=== PATIENT | male | born 1965 | race Caucasian/White ===

== ENCOUNTER 2020-03-12 05:08 | Emergency (ER) | payer MEDICAID, OTHER ==
[2020-03-12] MEDS ORDERED: Ketorolac 30 MG/ML SDV IVPUSH ONE (05:19)
[2020-03-12] MEDS ORDERED: Sodium Chloride 0.9% 10 ML Syringe FLUSH PRN (05:19)
[2020-03-12] MEDS ORDERED: Sodium Chloride 0.9% 1,000 ML IV STA (05:19)
[2020-03-12] MEDS ORDERED: Ondansetron 4 MG/2 ML SDV IVPUSH ONE (05:20)
--- NOTE | 2020-03-12 05:23 | EDM.PDOC ---
ED HPI GENERAL MEDICAL PROBLEM - General Chief Complaint: Abdominal Pain Stated Complaint: ABD PAIN Time Seen by Provider: 03/12/20 05:16 Source of Information: Reports: Patient, RN Notes Reviewed History Limitations: Reports: No Limitations - History of Present Illness INITIAL COMMENTS - FREE TEXT/NARRATIVE: 54-year-old gentleman presents emergency department a complaint of right flank pain, pain came on suddenly early this morning started the flank is migrated down into the groin. He describes the pain is constant does have some nausea no vomiting no shortness of breath or chest pain Right Lower Abdomen Pain Score (Numeric/FACES): 2 - Related Data Allergies Allergy/AdvReac Type Severity Reaction Status Date / Time No Known Allergies Allergy Verified 03/12/20 05:12 Home Meds: Home Meds Hydrocodone/Acetaminophen [Hydrocodon-Acetaminophen 5-325] 1 each PO TID PRN #20 tablet 03/12/20 [Rx] Past Medical History - Past Health History Medical/Surgical History: Denies Medical/Surgical History Social & Family History - Tobacco Use Smoking Status *Q: Current Every Day Smoker ED ROS GENERAL - Review of Systems Review Of Systems: See Below Constitutional: Reports: No Symptoms HEENT: Reports: No Symptoms Respiratory: Reports: No Symptoms Cardiovascular: Reports: No Symptoms GI/Abdominal: Reports: Abdominal Pain, Nausea. Denies: Vomiting : Reports: Flank Pain ED EXAM, GI/ABD - Physical Exam Exam: See Below Exam Limited By: No Limitations General Appearance: Alert, Moderate Distress Respiratory/Chest: No Respiratory Distress, Lungs Clear, Normal Breath Sounds, No Accessory Muscle Use, Chest Non-Tender Cardiovascular: Regular Rate, Rhythm, No Murmur GI/Abdominal Exam: Soft, Tender Course - Vital Signs Last Recorded V/S: Last Vital Signs Temp 96 F L 03/12/20 06:19 Pulse 84 03/12/20 06:19 Resp 16 03/12/20 06:19 BP 131/89 03/12/20 06:19 Pulse Ox 94 L 03/12/20 06:19 - Orders/Labs/Meds Orders: Active Orders 24 hr Category Date Time Status Peripheral IV Care [RC] . DIRECTED Care 03/12/20 05:20 Active UA W/MICROSCOPIC [URIN] Urgent Lab 03/12/20 05:19 Ordered Sodium Chloride 0.9% [Normal Saline] 1,000 ml Med 03/12/20 05:19 Active IV .BOLUS Sodium Chloride 0.9% [Saline Flush] Med 03/12/20 05:19 Active 10 ml FLUSH ASDIRECTED PRN Peripheral IV Insertion Adult [OM.PC] Urgent Oth 03/12/20 05:19 Ordered Medication Orders Sodium Chloride (Normal Saline) 1,000 mls @ 500 mls/hr IV .BOLUS STA Stop: 03/12/20 07:18 Last Admin: 03/12/20 05:28 Dose: 500 mls/hr Documented by: KAYCE Sodium Chloride (Saline Flush) 10 ml FLUSH ASDIRECTED PRN PRN Reason: Keep Vein Open Last Admin: 03/12/20 05:48 Dose: 10 ml Documented by: SOPHIA Labs: Laboratory Tests 03/12/20 03/12/20 03/12/20 Range/Units 05:19 05:19 05:19 WBC 10.8 (4.5-11.0) K/uL RBC 4.58 (4.30-5.90) M/uL Hgb 13.5 (12.0-15.0) g/dL Hct 42.0 (40.0-54.0) % MCV 92 (80-98) fL MCH 30 (27-31) pg MCHC 32 (32-36) % Plt Count 328 (150-400) K/uL Neut % (Auto) 67 H (36-66) % Lymph % (Auto) 21 L (24-44) % [place] % (Auto) 10 H (2-6) % Eos % (Auto) 2 (2-4) % Baso % (Auto) 1 (0-1) % Sodium 137 L (140-148) mmol/L Potassium 3.4 L (3.6-5.2) mmol/L Chloride 99 L (100-108) mmol/L Carbon Dioxide 26 (21-32) mmol/L Anion Gap 15.4 H (5.0-14.0) mmol/L BUN 15 (7-18) mg/dL Creatinine 1.2 (0.8-1.3) mg/dL Est Cr Clr Drug Dosing 78.14 mL/min Estimated GFR (MDRD) > 60 (>60) Glucose 161 H (74-106) mg/dL Lactic Acid 1.5 (0.4-2.0) mmol/L Calcium 9.0 (8.5-10.1) mg/dL Total Bilirubin 0.4 (0.2-1.0) mg/dL AST 30 (15-37) U/L ALT 73 (12-78) U/L Alkaline Phosphatase 70 (46-116) U/L Troponin I < 0.017 (0.000-0.056) ng/mL Total Protein 7.8 (6.4-8.2) g/dL Albumin 3.9 (3.4-5.0) g/dL Globulin 3.9 H (2.3-3.5) g/dL Albumin/Globulin Ratio 1.0 L (1.2-2.2) Lipase 119 (73-393) U/L Meds: Medications Generic Name Dose Route Start Last Admin Trade Name Freq PRN Reason Stop Dose Admin Sodium Chloride 1,000 mls @ 500 mls/hr 03/12/20 05:19 03/12/20 05:28 Normal Saline IV 03/12/20 07:18 500 mls/hr .BOLUS STA Administration Sodium Chloride 10 ml 03/12/20 05:19 03/12/20 05:48 Saline Flush FLUSH 10 ml ASDIRECTED PRN Administration Keep Vein Open Discontinued Medications Generic Name Dose Route Start Last Admin Trade Name Freq PRN Reason Stop Dose Admin Hydromorphone HCl 1 mg 03/12/20 05:49 03/12/20 05:54 Dilaudid IVPUSH 03/12/20 05:50 1 mg ONETIME ONE Administration Ketorolac Tromethamine 30 mg 03/12/20 05:19 03/12/20 05:26 Toradol IVPUSH 03/12/20 05:20 30 mg ONETIME ONE Administration Ondansetron HCl 4 mg 03/12/20 05:20 03/12/20 05:27 Zofran IVPUSH 03/12/20 05:21 4 mg ONETIME ONE Administration Departure - Departure Time of Disposition: 06:52 Disposition: Home, Self-Care 01 Condition: Fair Clinical Impression: Nephrolithiasis - Discharge Information Instructions: Kidney Stones, [id number] Referrals: PCP,None [Primary Care Provider] - Forms: ED Department Discharge Additional Instructions: Use ibuprofen for baseline pain control use hydrocodone for breakthrough pain, please followup with your primary care provider in 5-7 days if not better, please call return to the emergency department with worsening of symptoms. Sepsis Event Note (ED) - Focused Exam Vital Signs: Vital Signs Temp Pulse Resp BP Pulse Ox 03/12/20 06:19 96 F L 84 16 131/89 94 L 03/12/20 05:32 96 F L 85 16 147/93 H 96 - My Orders Last 24 Hours: My Active Orders 03/12/20 05:19 UA W/MICROSCOPIC [URIN] Urgent Sodium Chloride 0.9% [Normal Saline] 1,000 ml IV .BOLUS Sodium Chloride 0.9% [Saline Flush] 10 ml FLUSH ASDIRECTED PRN Peripheral IV Insertion Adult [OM.PC] Urgent 03/12/20 05:20 Peripheral IV Care [RC] . DIRECTED - Assessment/Plan Last 24 Hours: My Active Orders 03/12/20 05:19 UA W/MICROSCOPIC [URIN] Urgent Sodium Chloride 0.9% [Normal Saline] 1,000 ml IV .BOLUS Sodium Chloride 0.9% [Saline Flush] 10 ml FLUSH ASDIRECTED PRN Peripheral IV Insertion Adult [OM.PC] Urgent 03/12/20 05:20 Peripheral IV Care [RC] . DIRECTED Plan: Assessment Acuity = acute Site and laterality = right 2 mm nephrolithiasis UVJ Etiology = unknown Manifestations = abdominal pain Location of injury = Home Lab values = CBC unremarkable potassium low at 3.4 consistent hypokalemia, troponin was negative Plan Good relief combination Toradol and Dilaudid prescription written for hydrocodone 5/325 1 tab p.o. 3 times daily as needed total #20 have him follow- up with his primary care in the next 3 to 5 days if no improvement This note was dictated using [employer] voice recognition software please call with any questions on syntax or grammar.
[2020-03-12] MEDS ORDERED: HYDROmorphone 1 MG/ML Syringe IVPUSH ONE ×2 (05:49→06:55)
--- NOTE | 2020-03-12 06:12 | CRLCT ---
INDICATION: Right flank pain. Technique : Noncontrast CT scan of the abdomen and pelvis. FINDINGS: The lung bases are unremarkable. Diffuse fatty infiltration of the liver. No focal abnormalities identified in the visualized portions of the liver, spleen, pancreas, and adrenal glands. 1-2 mm stone in the right UVJ which causes mild right-sided hydronephrosis. 2 mm nonobstructing nephrolith in the superior pole of the right kidney. The kidneys are otherwise unremarkable. No left-sided hydronephrosis. The GI tract is incompletely distended but shows no gross abnormalities. The stomach and GE junction are not well assessed. Normal appendix. Gallstones in an otherwise normal-appearing gallbladder. No retroperitoneal, pelvic sidewall, or mesenteric adenopathy. Degenerative changes of the spine. IMPRESSION: 1-2 mm stone in the right UVJ which causes mild right-sided hydronephrosis. Dictated by Ambrocio Kennedy MD @ 03/12/2020 6:10:34 AM Dictated by: Ambrocio Kennedy MD @ 03/12/2020 06:10:48 (Electronically Signed)
[2020-03-12 06:20] VITALS: BP 131/89; PULSE 84
== END 2020-03-12 07:08 | disposition home or self-care (01) ==
LOC: JP.ED 05:08
DX: N13.2 Hydronephrosis with renal and ureteral calculous obstruction (principal); F17.200 Nicotine dependence, unspecified, uncomplicated
CPT/HCPCS: 36415; 74176; 80053; 83605; 83690; 84484; 85025; 96361; 96374; 96375; 96376; 99284; J1170; J1885; J2405; J7030

== ENCOUNTER 2020-03-14 06:10 | Emergency (ER) | payer MEDICAID ==
[2020-03-14 06:26] VITALS: BP 178/101; PULSE 76
[2020-03-14] MEDS ORDERED: Tamsulosin 0.4 MG Cap.ER PO ONE (06:47)
--- NOTE | 2020-03-14 07:01 | EDM.PDOC ---
ED HPI GENERAL MEDICAL PROBLEM - General Chief Complaint: Genitourinary Problem Stated Complaint: KIDNEY STONES Time Seen by Provider: 03/14/20 06:35 Source of Information: Reports: Patient History Limitations: Reports: No Limitations - History of Present Illness INITIAL COMMENTS - FREE TEXT/NARRATIVE: 54-year-old male having right lower quadrant pain and bladder discomfort, does not feel like he is emptying his bladder completely after being diagnosed with kidney stone 3 days ago. No fevers or chills, still some pain radiating around to his right back. No nausea or vomiting. Onset: Unknown/Unsure Duration: Day(s): (Symptoms have been waxing and waning for several days) Associated Symptoms: Reports: No Other Symptoms Abdominal Pain Score (Numeric/FACES): 6 - Related Data Allergies Allergy/AdvReac Type Severity Reaction Status Date / Time No Known Allergies Allergy Verified 03/14/20 06:23 Home Meds: Home Meds Hydrocodone/Acetaminophen [Hydrocodon-Acetaminophen 5-325] 1 each PO TID PRN #20 tablet 03/12/20 [Rx] Past Medical History - Past Health History Medical/Surgical History: Denies Medical/Surgical History HEENT History: Reports: Impaired Vision Genitourinary History: Reports: Renal Calculus Musculoskeletal History: Reports: Fracture Endocrine/Metabolic History: Reports: Obesity/BMI 30+ - Infectious Disease History Infectious Disease History: Reports: Chicken Pox - Past Surgical History Musculoskeletal Surgical History: Reports: Other (See Below) Other Musculoskeletal Surgeries/Procedures:: shoulder surgery bone infection r index finger Social & Family History - Caffeine Use Caffeine Use: Reports: Energy Drinks, Soda ED ROS GENERAL - Review of Systems Review Of Systems: See Below Constitutional: Denies: Fever, Chills HEENT: Reports: No Symptoms Respiratory: Denies: Shortness of Breath Cardiovascular: Denies: Chest Pain GI/Abdominal: Reports: Abdominal Pain : Reports: Dysuria, Frequency, Urgency ED EXAM, RENAL/ - Physical Exam Exam: See Below Exam Limited By: No Limitations General Appearance: Alert, No Apparent Distress Respiratory/Chest: No Respiratory Distress, Lungs Clear Cardiovascular: Regular Rate, Rhythm GI/Abdominal: Tender (Minimal discomfort when palpating across the lower abdomen, no guarding or rebound) Neurological: Alert, Oriented Course - Vital Signs Last Recorded V/S: Last Vital Signs Temp 97.8 F 03/14/20 06:26 Pulse 76 10/01/20 06:26 Resp 18 03/14/20 06:26 BP 178/101 H 03/14/20 06:26 Pulse Ox 97 03/14/20 06:26 - Orders/Labs/Meds Meds: Medications Discontinued Medications Generic Name Dose Route Start Last Admin Trade Name Bia PRN Reason Stop Dose Admin Tamsulosin HCl 0.4 mg 03/14/20 06:47 03/14/20 06:51 Flomax PO 03/14/20 06:48 0.4 mg ONETIME ONE Administration - Re-Assessments/Exams Free Text/Narrative Re-Assessment/Exam: 03/14/20 06:59 Bladder scan was done in the bladder is empty. This patient is likely still having some ureteral colic on the right side, possibly some urethritis. He was given 1 dose of oral Flomax, will placed on Bactrim DS twice daily for the next 5 days, and will recheck in 48 hours if no improvement. He can return anytime sooner if worsening such as increased pain or vomiting, fever, or respiratory issues. Departure - Departure Time of Disposition: 07:07 Disposition: Home, Self-Care 01 Clinical Impression: Renal colic on right side - Discharge Information Instructions: Kidney Stones, [id number], Dietary Guidelines to Help Prevent Kidney Stones Referrals: PCP,None [Primary Care Provider] - Forms: ED Department Discharge Care Plan Goals: Take antibiotic twice daily for the next 5 days, continue drinking plenty of water and return in 48 hours if not improving satisfactorily. You may return sooner if worsening or concerns such as fever, increased pain or vomiting the medication. Sepsis Event Note (ED) - Evaluation Sepsis Screening Result: No Definite Risk - Focused Exam Vital Signs: Vital Signs Temp Pulse Resp BP Pulse Ox 03/14/20 06:26 97.8 F 76 18 178/101 H 97 03/14/20 06:25 97.8 F 76 18 178/101 H 97
== END 2020-03-14 07:08 | disposition home or self-care (01) ==
LOC: JP.ED 06:10
DX: N23 Unspecified renal colic (principal); E66.9 Obesity, unspecified; Z68.41 Body mass index [BMI] 40.0-44.9, adult
CPT/HCPCS: 99284; A9270; 99283

== ENCOUNTER 2020-05-30 14:59 | Emergency (ER) | payer MEDICAID ==
[2020-05-30 15:11] VITALS: PULSE 97
[2020-05-30 15:18] VITALS: BP 115/96
[2020-05-30] MEDS ORDERED: Albuterol/Ipratropium 3.0-0.5 MG/3 ML Neb Soln NEB ONE (15:27)
[2020-05-30] MEDS ORDERED: methylPREDNISolone Sodium Succinate 125 MG/2 ML SDV IVPUSH ONE (15:54)
[2020-05-30] MEDS ORDERED: Azithromycin 250 MG Tab PO ONE (15:54)
[2020-05-30] MEDS ORDERED: Doxycycline 100 MG Cap PO ONE (15:55)
--- NOTE | 2020-05-30 16:05 | EDM.PDOC ---
ED HPI GENERAL MEDICAL PROBLEM - General Chief Complaint: Respiratory Problem Stated Complaint: BREATHING ISSUES Time Seen by Provider: 05/30/20 15:15 Source of Information: Reports: Patient, Family History Limitations: Reports: No Limitations - History of Present Illness INITIAL COMMENTS - FREE TEXT/NARRATIVE: 54-year-old male with a chronic history of recurring reactive airways and bronchitis, non-smoker but he does chew tobacco. Several weeks ago while he was hunting he was active in the [employer] and started wheezing, and he has been having trouble ever since. No fevers or chills, he has a persistent cough but nonproductive. Has been using his inhaler and nebulizer with little benefit. He was talking to his daughter on the phone today and she could hear how much she was struggling so drove to [place] and brought him in to be seen. On arrival he looked somewhat pale and in mild respiratory distress but his O2 sats were 95%. Denied any pain. He was tested for Covid at the clinic a few days ago and was negative. Onset: Gradual Duration: Week(s): (Weeks) - Related Data Allergies Allergy/AdvReac Type Severity Reaction Status Date / Time No Known Allergies Allergy Verified 05/30/20 15:11 Home Meds: Home Meds Albuterol Sulfate 0.63 mg IH ASDIRECTED 05/30/20 [History] Past Medical History - Past Health History Medical/Surgical History: Denies Medical/Surgical History HEENT History: Reports: Impaired Vision Respiratory History: Reports: Bronchitis, Recurrent Genitourinary History: Reports: Renal Calculus Musculoskeletal History: Reports: Fracture Endocrine/Metabolic History: Reports: Obesity/BMI 30+ - Infectious Disease History Infectious Disease History: Reports: Chicken Pox - Past Surgical History Head Surgeries/Procedures: Reports: None HEENT Surgical History: Reports: None Respiratory Surgical History: Reports: None Endocrine Surgical History: Reports: None Musculoskeletal Surgical History: Reports: Other (See Below) Other Musculoskeletal Surgeries/Procedures:: shoulder surgery bone infection r index finger Dermatological Surgical History: Reports: None Social & Family History - Tobacco Use Years of Tobacco use: 40 Used Tobacco, but Quit: No Second Hand Smoke Exposure: No - Caffeine Use Caffeine Use: Reports: Soda - Recreational Drug Use Recreational Drug Use: No ED ROS GENERAL - Review of Systems Review Of Systems: See Below Constitutional: Reports: Malaise. Denies: Fever, Chills HEENT: Denies: Throat Pain Respiratory: Reports: Shortness of Breath, Wheezing, Cough. Denies: Sputum Cardiovascular: Denies: Chest Pain GI/Abdominal: Denies: Nausea, Vomiting Musculoskeletal: Reports: No Symptoms Skin: Reports: No Symptoms Neurological: Reports: No Symptoms Psychiatric: Reports: No Symptoms ED EXAM, GENERAL - Physical Exam Exam: See Below Exam Limited By: No Limitations General Appearance: Alert, Mild Distress (Patient had mild increased respiratory effort and of isthmic, however his O2 sats were 96% on room air. Respiratory rate was 26 and he had audible wheezing from across the room.) Head: Atraumatic Respiratory/Chest: Rhonchi, Wheezing (Diffuse rhonchi and wheezing inspiratory and expiratory bilaterally) Cardiovascular: Regular Rate, Rhythm. No: Tachycardia GI/Abdominal: Non-Tender Extremities: No: Pedal Edema Neurological: Alert, Oriented Psychiatric: Normal Affect, Normal Mood Skin Exam: Warm, Dry Course - Vital Signs Last Recorded V/S: Last Vital Signs Temp 98.0 F 05/30/20 15:15 Pulse 97 05/30/20 15:15 Resp 26 H 05/30/20 15:15 BP 115/96 H 05/30/20 15:17 Pulse Ox 96 05/30/20 15:15 - Orders/Labs/Meds Meds: Medications Discontinued Medications Generic Name Dose Route Start Last Admin Trade Name Gaboq PRN Reason Stop Dose Admin Albuterol/Ipratropium 3 ml 05/30/20 15:27 05/30/20 15:33 Duoneb 3.0-0.5 Mg/3 Ml NEB 05/30/20 15:28 3 ml ONETIME ONE Administration Doxycycline Hyclate 200 mg 05/30/20 15:55 05/30/20 16:05 Vibramycin PO 05/30/20 15:56 200 mg ONETIME ONE Administration Methylprednisolone Sodium Succinate 125 mg 05/30/20 15:54 05/30/20 15:59 Solu-Medrol IVPUSH 05/30/20 15:55 125 mg ONETIME ONE Administration - Re-Assessments/Exams Free Text/Narrative Re-Assessment/Exam: 05/31/20 07:21 Patient was given a DuoNeb, then sent back for a 2 view chest x-ray. This looked normal and he felt fairly suddenly better subjectively and objectively is respiratory rate decreased to normal. He still had significant wheezing present. An IV was started and the patient was given 125 mg of IV Solu-Medrol and 1000 mg of p.o. Zithromax. He will be continued on steroids with 60 mg daily for 5 days, 40 for an additional 3 and then 20 for 4 more. He can return anytime if worsening despite treatment. He refused to consider hospitalization at this time. I also gave him a prescription for DuoNeb ampules to use in his nebulizer twice daily along with as needed albuterol. Departure - Departure Time of Disposition: 16:22 Disposition: Home, Self-Care 01 Clinical Impression: Bronchitis Reactive airway disease Qualifiers: Asthma severity: severe Asthma persistence: persistent Asthma complication type: uncomplicated Qualified Code(s): J45.50 - Severe persistent asthma, uncomplicated - Discharge Information Instructions: Shortness of Breath, Adult, [id number] Referrals: PCP,None [Primary Care Provider] - Forms: ED Department Discharge Care Plan Goals: Take 60 mg of prednisone daily for 5 days, 40 mg for 3 more days, and 20 mg for 3 additional days. Take a full course of doxycycline as directed. Use your nebulizer with DuoNeb ampules twice daily, and albuterol up to every 2-3 hours if needed. Recheck in 2 to 3 days if not improving satisfactorily, or return anytime if worsening despite treatment. Sepsis Event Note (ED) - Evaluation Sepsis Screening Result: Possible Sepsis Risk
--- NOTE | 2020-05-30 16:07 | CR ---
CHEST: 2 view CLINICAL HISTORY:Dyspnea COMPARISON:2014 FINDINGS: The heart size, pulmonary vascularity and hilar structures are normal. No infiltrate effusion or pneumothorax is seen. IMPRESSION: No acute cardiopulmonary process.
== END 2020-05-30 16:22 | disposition home or self-care (01) ==
LOC: JP.ED 14:59
DX: J45.50 Severe persistent asthma, uncomplicated (principal); E66.9 Obesity, unspecified; F17.220 Nicotine dependence, chewing tobacco, uncomplicated; Z68.41 Body mass index [BMI] 40.0-44.9, adult
CPT/HCPCS: 71046; 71046-26; 94640; 96374; 99284; 99285-25; A9270-GY; J2930; J7620-GY

== ENCOUNTER 2020-08-16 08:28 | Emergency (ER) | payer MEDICAID ==
[2020-08-16 08:46] VITALS: BP 148/97; PULSE 58
[2020-08-16] MEDS ORDERED: Albuterol/Ipratropium 3.0-0.5 MG/3 ML Neb Soln NEB ONE (09:07)
[2020-08-16] MEDS ORDERED: Triamcinolone Acetonide 40 MG/ML 1 ML SDV IM PRN (09:08)
--- NOTE | 2020-08-16 09:08 | EDM.PDOC ---
ED HPI GENERAL MEDICAL PROBLEM - General Chief Complaint: Respiratory Problem Stated Complaint: BRONCHITIS Time Seen by Provider: 08/16/20 09:07 Source of Information: Reports: Patient History Limitations: Reports: No Limitations - History of Present Illness INITIAL COMMENTS - FREE TEXT/NARRATIVE: pt had a history of bronchitis in May. He is now feeling tight and more sob. Onset: Gradual Duration: Day(s): Location: Reports: Chest, Other (pt is feeling quite wheezy. ) Associated Symptoms: Reports: Cough, Shortness of Breath - Related Data Allergies Allergy/AdvReac Type Severity Reaction Status Date / Time No Known Allergies Allergy Verified 08/16/20 08:43 Home Meds: Home Meds Albuterol Sulfate 0.63 mg IH ASDIRECTED 05/30/20 [History] Past Medical History - Past Health History Medical/Surgical History: Denies Medical/Surgical History HEENT History: Reports: Impaired Vision Respiratory History: Reports: Bronchitis, Recurrent Genitourinary History: Reports: Renal Calculus Musculoskeletal History: Reports: Fracture Endocrine/Metabolic History: Reports: Obesity/BMI 30+ - Infectious Disease History Infectious Disease History: Reports: Chicken Pox - Past Surgical History Head Surgeries/Procedures: Reports: None HEENT Surgical History: Reports: None Respiratory Surgical History: Reports: None Endocrine Surgical History: Reports: None Musculoskeletal Surgical History: Reports: Other (See Below) Other Musculoskeletal Surgeries/Procedures:: shoulder surgery bone infection r index finger Dermatological Surgical History: Reports: None Social & Family History - Tobacco Use Tobacco Use Status *Q: Current Every Day Tobacco User Years of Tobacco use: 40 Packs/Tins Daily: 0.5 Used Tobacco, but Quit: No Second Hand Smoke Exposure: No - Caffeine Use Caffeine Use: Reports: Soda - Recreational Drug Use Recreational Drug Use: No ED ROS GENERAL - Review of Systems Review Of Systems: See Below Constitutional: Reports: No Symptoms HEENT: Reports: No Symptoms Respiratory: Reports: Shortness of Breath, Wheezing, Cough, Sputum Cardiovascular: Reports: No Symptoms Endocrine: Reports: No Symptoms GI/Abdominal: Reports: No Symptoms : Reports: No Symptoms Musculoskeletal: Reports: No Symptoms Skin: Reports: No Symptoms Neurological: Reports: No Symptoms Psychiatric: Reports: Anxiety ED EXAM, GENERAL - Physical Exam Exam: See Below Free Text/Narrative:: pt has been more sob and wheezy for the past 2 days. He has a history of bronchitis in May. Exam Limited By: No Limitations General Appearance: Alert, Anxious, Moderate Distress Ears: Normal TMs Nose: Normal Inspection Throat/Mouth: Normal Inspection Head: Atraumatic Neck: Normal Inspection Respiratory/Chest: Decreased Breath Sounds, Wheezing Cardiovascular: Regular Rate, Rhythm, Bradycardia GI/Abdominal: Soft, Non-Tender (Male) Exam: Deferred Rectal (Males) Exam: Deferred Back Exam: Normal Inspection Extremities: Normal Inspection Neurological: Alert, Oriented, Normal Cognition Course - Vital Signs Last Recorded V/S: Last Vital Signs Temp 36.6 C 08/16/20 08:47 Pulse 58 L 08/16/20 08:47 Resp 18 08/16/20 08:47 BP 148/97 H 08/16/20 08:47 Pulse Ox 98 08/16/20 08:47 - Orders/Labs/Meds Orders: Active Orders 24 hr Category Date Time Status RT Aerosol Therapy [RC] ASDIRECTED Care 08/16/20 09:08 Active Chest 2V [CR] Stat Exams 08/16/20 09:14 Taken Triamcinolone Acetonide [Kenalog-40] Med 08/16/20 09:08 Active 60 mg IM ASDIRECTED PRN Medication Orders Triamcinolone Acetonide (Kenalog-40) 60 mg IM ASDIRECTED PRN PRN Reason: Congestion Last Admin: 08/16/20 09:25 Dose: 60 mg Documented by: JARRELL Labs: Laboratory Tests 08/16/20 Range/Units 09:04 WBC 8.7 (4.5-11.0) K/uL RBC 4.81 (4.30-5.90) M/uL Hgb 13.9 (12.0-15.0) g/dL Hct 44.6 (40.0-54.0) % MCV 93 (80-98) fL MCH 29 (27-31) pg MCHC 31 L (32-36) % Plt Count 340 (150-400) K/uL Neut % (Auto) 56 (36-66) % Lymph % (Auto) 24 (24-44) % [place] % (Auto) 11 H (2-6) % Eos % (Auto) 8 H (2-4) % Baso % (Auto) 1 (0-1) % Meds: Medications Generic Name Dose Route Start Last Admin Trade Name Freq PRN Reason Stop Dose Admin Triamcinolone Acetonide 60 mg 08/16/20 09:08 08/16/20 09:25 Kenalog-40 IM 60 mg ASDIRECTED PRN Administration Congestion Discontinued Medications Generic Name Dose Route Start Last Admin Trade Name Bia PRN Reason Stop Dose Admin Albuterol/Ipratropium 3 ml 08/16/20 09:07 08/16/20 09:23 Duoneb 3.0-0.5 Mg/3 Ml NEB 08/16/20 09:08 3 ml ONETIME ONE Administration Departure - Departure Time of Disposition: 09:52 Disposition: Home, Self-Care 01 Condition: Fair Clinical Impression: Bronchitis - Discharge Information Referrals: PCP,None [Primary Care Provider] - Forms: ED Department Discharge Care Plan Goals: cool mist humidifier, albuterol inhakler 2 puffs tid, predisone 10 mg daily for 1 week, zpak. rtc if problems. Sepsis Event Note (ED) - Evaluation Sepsis Screening Result: No Definite Risk - Focused Exam Vital Signs: Vital Signs Temp Pulse Resp BP Pulse Ox 08/16/20 08:47 36.6 C 58 L 18 148/97 H 98 08/16/20 08:46 36.6 C 58 L 18 148/97 H 98 - My Orders Last 24 Hours: My Active Orders 08/16/20 09:08 RT Aerosol Therapy [RC] ASDIRECTED Triamcinolone Acetonide [Kenalog-40] 60 mg IM ASDIRECTED PRN 08/16/20 09:14 Chest 2V [CR] Stat - Assessment/Plan Last 24 Hours: My Active Orders 08/16/20 09:08 RT Aerosol Therapy [RC] ASDIRECTED Triamcinolone Acetonide [Kenalog-40] 60 mg IM ASDIRECTED PRN 08/16/20 09:14 Chest 2V [CR] Stat
--- NOTE | 2020-08-16 10:00 | CR ---
CHEST: 2 view CLINICAL HISTORY:SOB COMPARISON:08/16/2020 FINDINGS: Heart is enlarged. Pulmonary vascularity is normal. Heart size and lung markings are exaggerated by poor respiratory level. No infiltrate, effusion or pneumothorax is seen. IMPRESSION: Less than optimal inspiration Mild cardiomegaly No acute cardiopulmonary process
== END 2020-08-16 10:06 | disposition home or self-care (01) ==
LOC: JP.ED 08:28
DX: J40 Bronchitis, not specified as acute or chronic (principal); E66.9 Obesity, unspecified; Z68.41 Body mass index [BMI] 40.0-44.9, adult; Z72.0 Tobacco use
CPT/HCPCS: 36415; 71046; 85025; 94640; 96372; 99285; J3301; J7620-GY

== ENCOUNTER 2021-01-28 08:04 | Emergency (ER) | payer MEDICAID ==
[2021-01-28] MEDS ORDERED: Albuterol/Ipratropium 3.0-0.5 MG/3 ML Neb Soln NEB ONE (08:37)
[2021-01-28] MEDS ORDERED: methylPREDNISolone Sodium Succinate 125 MG/2 ML SDV IVPUSH ONE (08:54)
[2021-01-28 09:05] VITALS: BP 148/82; PULSE 91
--- NOTE | 2021-01-28 09:19 | EDM.PDOC ---
ED HPI GENERAL MEDICAL PROBLEM - General Chief Complaint: Respiratory Problem Stated Complaint: BREATHING ISSUES Time Seen by Provider: 01/28/21 08:40 Source of Information: Reports: Patient, Family History Limitations: Reports: No Limitations - History of Present Illness INITIAL COMMENTS - FREE TEXT/NARRATIVE: 55-year-old male with chronic asthma has had an increase exacerbation over the past 2 weeks and finally got so short of breath that he needed to be checked out. I saw him with a similar set of symptoms a year ago that he responded well to steroids and Zithromax. He does not have an inhaler or any medications at this time. No fevers or chills, cough is nonproductive. Onset: Gradual Duration: Week(s): (3 weeks of symptoms) Associated Symptoms: Reports: Malaise, Shortness of Breath. Denies: Confusion, Chest Pain, Fever/Chills, Headaches - Related Data Allergies Allergy/AdvReac Type Severity Reaction Status Date / Time No Known Allergies Allergy Verified 01/28/21 08:21 Home Meds: Home Meds NK [No Known Home Meds] 01/28/21 [History] Past Medical History - Past Health History Medical/Surgical History: Denies Medical/Surgical History HEENT History: Reports: Impaired Vision Respiratory History: Reports: Bronchitis, Recurrent Genitourinary History: Reports: Renal Calculus Musculoskeletal History: Reports: Fracture Endocrine/Metabolic History: Reports: Obesity/BMI 30+ - Infectious Disease History Infectious Disease History: Reports: Chicken Pox - Past Surgical History Head Surgeries/Procedures: Reports: None HEENT Surgical History: Reports: None Respiratory Surgical History: Reports: None Endocrine Surgical History: Reports: None Musculoskeletal Surgical History: Reports: Other (See Below) Other Musculoskeletal Surgeries/Procedures:: shoulder surgery bone infection r index finger Dermatological Surgical History: Reports: None Social & Family History - Tobacco Use Tobacco Use Status *Q: Current Every Day Tobacco User Years of Tobacco use: 40 Packs/Tins Daily: 0.5 - Caffeine Use Caffeine Use: Reports: Soda - Recreational Drug Use Recreational Drug Use: No ED ROS GENERAL - Review of Systems Review Of Systems: See Below Constitutional: Reports: Malaise. Denies: Fever, Chills HEENT: Denies: Throat Pain Respiratory: Reports: Shortness of Breath, Wheezing, Cough. Denies: Sputum Cardiovascular: Denies: Chest Pain GI/Abdominal: Denies: Nausea, Vomiting Skin: Reports: No Symptoms Neurological: Denies: Dizziness, Headache Psychiatric: Reports: No Symptoms ED EXAM, GENERAL - Physical Exam Exam: See Below Exam Limited By: No Limitations General Appearance: Alert, Anxious, Mild Distress, Other (Mild increased respiratory effort and discomfort) Eye Exam: Bilateral Eye: Normal Inspection Throat/Mouth: Normal Inspection Head: Atraumatic Neck: Supple, Non-Tender Respiratory/Chest: Wheezing (Diffuse inspiratory and expiratory wheezing is heard) Cardiovascular: Regular Rate, Rhythm. No: Tachycardia GI/Abdominal: Non-Tender Extremities: Normal Inspection Neurological: Alert, Oriented Psychiatric: Anxious Skin Exam: Warm, Dry Course - Vital Signs Last Recorded V/S: Last Vital Signs Temp 96.6 F L 01/28/21 08:25 Pulse 91 01/28/21 09:04 Resp 20 01/28/21 09:04 BP 148/82 H 01/28/21 09:04 Pulse Ox 94 L 01/28/21 09:04 - Orders/Labs/Meds Meds: Medications Discontinued Medications Generic Name Dose Route Start Last Admin Trade Name Bia PRN Reason Stop Dose Admin Albuterol/Ipratropium 3 ml 01/28/21 08:37 01/28/21 08:42 Albuterol/Ipratropium 3.0-0.5 Mg/3 Ml Neb Soln NEB 01/28/21 08:38 3 ml ONETIME ONE Administration Methylprednisolone Sodium Succinate 125 mg 01/28/21 08:54 01/28/21 09:01 Methylprednisolone Sodium Succinate 125 Mg/2 Ml Sdv IVPUSH 01/28/21 08:55 125 mg ONETIME ONE Administration - Re-Assessments/Exams Free Text/Narrative Re-Assessment/Exam: 01/28/21 10:39 Initially the patient was given a DuoNeb which did give him some subjective and objective improvement but still significant wheezing. An IV was started and he was given 125 mg of IV Solu-Medrol. This will be followed by 60 mg of prednisone daily for 5 consecutive days, as well as a course of Zithromax and a new albuterol inhaler to use every 2-3 hours. He should recheck in the next 2 or 3 days if not improving satisfactorily, or can return anytime if worsening despite treatment. Departure - Departure Time of Disposition: :23 Disposition: Home, Self-Care 01 Clinical Impression: Reactive airway disease Qualifiers: Asthma severity: severe Asthma persistence: persistent Asthma complication type: uncomplicated Qualified Code(s): J45.50 - Severe persistent asthma, uncomplicated - Discharge Information Instructions: Asthma, Adult, [id number] Referrals: PCP,None [Primary Care Provider] - Forms: ED Department Discharge Care Plan Goals: Take 6 pills of prednisone with food starting tonight and then daily with your first meal of the day for 5 consecutive days. Use the inhaler 2 puffs every few hours as needed, and take antibiotic as prescribed. Increase activity as tolerated and return anytime if worsening despite treatment. Discuss with your regular doctor preventative treatment for asthma such as Flovent or Advair. I would recommend scheduling a recheck appointment early next week. Sepsis Event Note (ED) - Evaluation Sepsis Screening Result: No Definite Risk - Focused Exam Vital Signs: Vital Signs Temp Pulse Resp BP Pulse Ox 01/28/21 09:04 91 20 148/82 H 94 L 01/28/21 08:25 96.6 F L 85 20 160/103 H 94 L 01/28/21 08:18 96.6 F L 85 20 160/103 H 94 L
== END 2021-01-28 09:30 | disposition home or self-care (01) ==
LOC: JP.ED 08:04
DX: J45.50 Severe persistent asthma, uncomplicated (principal); E66.9 Obesity, unspecified; Z68.37 Body mass index [BMI] 37.0-37.9, adult; Z72.0 Tobacco use
CPT/HCPCS: 94640; 96374; 99284; J2930; J7620-GY

== ENCOUNTER 2021-06-01 07:38 | Emergency (ER) | payer MEDICAID ==
[2021-06-01 08:00] VITALS: BP 130/76; PULSE 103
--- NOTE | 2021-06-01 08:13 | EDM.PDOC ---
ED HPI GENERAL MEDICAL PROBLEM - General Chief Complaint: Respiratory Problem Stated Complaint: BRONCHITIS Time Seen by Provider: 06/01/21 08:04 Source of Information: Reports: Patient History Limitations: Reports: No Limitations - History of Present Illness INITIAL COMMENTS - FREE TEXT/NARRATIVE: pt has a history of a chronic cough and wheezing . In the last month this has been worse. He was seen 2 weeks ago and he was placed on predisone nd he thinks he should have had a longer course He was not given an antibiotic. He has has his Covid shots and he has been tested. Pt is not expectorating any sputum at this time. He has been short of breath with activity. Onset: Gradual, Other ( this has been going on for several weeks. ) Duration: Day(s): Location: Reports: Chest, Generalized Associated Symptoms: Reports: Cough, Shortness of Breath - Related Data Allergies Allergy/AdvReac Type Severity Reaction Status Date / Time No Known Allergies Allergy Verified 06/01/21 07:50 Home Meds: Home Meds NK [No Known Home Meds] 01/28/21 [History] Past Medical History - Past Health History Medical/Surgical History: Denies Medical/Surgical History HEENT History: Reports: Impaired Vision Respiratory History: Reports: Bronchitis, Recurrent Genitourinary History: Reports: Renal Calculus Musculoskeletal History: Reports: Fracture Endocrine/Metabolic History: Reports: Obesity/BMI 30+ - Infectious Disease History Infectious Disease History: Reports: Chicken Pox - Past Surgical History Head Surgeries/Procedures: Reports: None HEENT Surgical History: Reports: None Respiratory Surgical History: Reports: None Endocrine Surgical History: Reports: None Musculoskeletal Surgical History: Reports: Other (See Below) Other Musculoskeletal Surgeries/Procedures:: shoulder surgery bone infection r index finger Dermatological Surgical History: Reports: None Social & Family History - Tobacco Use Tobacco Use Status *Q: Never Tobacco User Second Hand Smoke Exposure: Yes - Caffeine Use Caffeine Use: Reports: Soda Other Caffeine Use: 1 pop occa. - Recreational Drug Use Recreational Drug Use: No ED ROS GENERAL - Review of Systems Review Of Systems: See Below Constitutional: Reports: No Symptoms HEENT: Reports: No Symptoms Respiratory: Reports: Shortness of Breath, Wheezing, Cough Cardiovascular: Reports: No Symptoms Endocrine: Reports: No Symptoms GI/Abdominal: Reports: No Symptoms : Reports: No Symptoms Musculoskeletal: Reports: No Symptoms Skin: Reports: No Symptoms Neurological: Reports: No Symptoms Psychiatric: Reports: No Symptoms ED EXAM, GENERAL - Physical Exam Exam: See Below Free Text/Narrative:: pt arrived sob and wheezing with normal o2 sats. Exam Limited By: No Limitations General Appearance: Alert, Anxious Ears: Normal TMs Nose: Normal Inspection Throat/Mouth: Normal Inspection Head: Atraumatic Neck: Normal Inspection Respiratory/Chest: Decreased Breath Sounds, Wheezing Cardiovascular: Regular Rate, Rhythm GI/Abdominal: Soft, Non-Tender (Male) Exam: Deferred Rectal (Males) Exam: Deferred Back Exam: Normal Inspection Extremities: Normal Inspection Neurological: Alert, Oriented, Normal Cognition Psychiatric: Anxious Course - Vital Signs Last Recorded V/S: Last Vital Signs Temp 35.6 C L 06/01/21 07:51 Pulse 103 H 06/01/21 07:51 Resp 24 H 06/01/21 07:51 BP 130/76 06/01/21 07:51 Pulse Ox 99 06/01/21 07:51 - Orders/Labs/Meds Orders: Active Orders 24 hr Category Date Time Status RT Aerosol Therapy [RC] ASDIRECTED Care 06/01/21 08:17 Active Chest 2V [CR] Stat Exams 06/01/21 08:13 Taken Labs: Laboratory Tests 06/01/21 06/01/21 Range/Units 08:13 08:15 WBC 10.0 (4.5-11.0) K/uL RBC 5.31 (4.30-5.90) M/uL Hgb 15.5 H (12.0-15.0) g/dL Hct 49.6 (40.0-54.0) % MCV 93 (80-98) fL MCH 29 (27-31) pg MCHC 31 L (32-36) % Plt Count 343 (150-400) K/uL Neut % (Auto) 65.7 (36-66) % Lymph % (Auto) 20.7 L (24-44) % Spencer % (Auto) 7.4 H (2-6) % Eos % (Auto) 5.6 H (2-4) % Baso % (Auto) 0.6 (0-1) % Sodium 139 L (140-148) mmol/L Potassium 4.2 (3.6-5.2) mmol/L Chloride 101 (100-108) mmol/L Carbon Dioxide 29 (21-32) mmol/L Anion Gap 13.2 (5.0-14.0) mmol/L BUN 12 (7-18) mg/dL Creatinine 1.1 (0.8-1.3) mg/dL Est Cr Clr Drug Dosing 84.26 mL/min Estimated GFR (MDRD) > 60 (>60) Glucose 117 H (74-106) mg/dL Calcium 9.0 (8.5-10.1) mg/dL Total Bilirubin 0.3 (0.2-1.0) mg/dL AST 26 (15-37) U/L ALT 62 (12-78) U/L Alkaline Phosphatase 78 (46-116) U/L Total Protein 7.5 (6.4-8.2) g/dL Albumin 3.5 (3.4-5.0) g/dL Globulin 4.0 H (2.3-3.5) g/dL Albumin/Globulin Ratio 0.9 L (1.2-2.2) Meds: Medications Discontinued Medications Generic Name Dose Route Start Last Admin Trade Name Freq PRN Reason Stop Dose Admin Albuterol/Ipratropium 3 ml 06/01/21 08:17 06/01/21 08:24 Albuterol/Ipratropium 3.0-0.5 Mg/3 Ml Neb Soln NEB 06/01/21 08:18 3 ml ONETIME ONE Administration Triamcinolone Acetonide 60 mg 06/01/21 09:06 Triamcinolone Acetonide 40 Mg/Ml 1 Ml Sdv INJECT 06/01/21 09:07 ASDIRECTED ONE - Re-Assessments/Exams Free Text/Narrative Re-Assessment/Exam: 06/01/21 09:21 pt was given a dulneb with improvement, He was given kenalog 60 mg im. He did not have a elevated wbc, his eosinophils are elevated. His chest xray did not reveal a pneumonia but did have chronic changes. He has a neb at home so will perscribe meds for that. Departure - Departure Time of Disposition: 09:17 Disposition: Home, Self-Care 01 Condition: Fair Clinical Impression: Bronchitis Reactive airway disease Qualifiers: Asthma severity: severe Asthma persistence: persistent Asthma complication type: uncomplicated Qualified Code(s): J45.50 - Severe persistent asthma, uncomplicated - Discharge Information Referrals: PCP,None [Primary Care Provider] - Forms: ED Department Discharge Care Plan Goals: encourage fluids, albuterol neb q6h, predisone 10 mg daily for 5 day. The shot received in ER will last 2 weeks, abiel pimentel --ban appt with appt at [facility] in 1 week. Sepsis Event Note (ED) - Evaluation Sepsis Screening Result: No Definite Risk - Focused Exam Vital Signs: Vital Signs Temp Pulse Resp BP Pulse Ox 06/01/21 07:51 35.6 C L 103 H 24 H 130/76 99 - My Orders Last 24 Hours: My Active Orders 06/01/21 08:13 Chest 2V [CR] Stat 06/01/21 08:17 RT Aerosol Therapy [RC] ASDIRECTED - Assessment/Plan Last 24 Hours: My Active Orders 06/01/21 08:13 Chest 2V [CR] Stat 06/01/21 08:17 RT Aerosol Therapy [RC] ASDIRECTED
[2021-06-01] MEDS ORDERED: Albuterol/Ipratropium 3.0-0.5 MG/3 ML Neb Soln NEB ONE (08:17)
[2021-06-01] MEDS ORDERED: Triamcinolone Acetonide 40 MG/ML 1 ML SDV INJECT ONE (09:06)
--- NOTE | 2021-06-02 11:47 | CR ---
CHEST: 2 view CLINICAL HISTORY:SOB and cough COMPARISON:08/16/2020 FINDINGS: There is less than optimal inspiration. This exaggerates basilar lung markings. Heart size is borderline enlarged pulmonary vascular is normal. Impression: Less than optimal aspiration exaggerates lung markings Borderline cardiomegaly No acute cardiopulmonary process.
== END 2021-06-01 10:02 | disposition home or self-care (01) ==
LOC: JP.ED 07:38
DX: J45.50 Severe persistent asthma, uncomplicated (principal); J40 Bronchitis, not specified as acute or chronic; Z77.22 Contact with and (suspected) exposure to environmental tobacco smoke (acute) (chronic)
CPT/HCPCS: 36415; 71046; 80053; 85025; 94640; 99285; J3301; J7620-GY

== ENCOUNTER 2024-12-10 17:08 | Emergency (ER) | payer MEDICAID ==
[2024-12-10 17:27] VITALS: BP 136/82; PULSE 95
[2024-12-10 18:47] LABS: BASOPHILS ABSOLUTE AUTO 0.11 K/uL (0.00-0.10); EOSINOPHILS ABSOLUTE AUTO 0.89 K/uL (0.00-0.40); EOSINOPHILS PERCENT AUTO 8.4 % (0.0-5.4); HEMATOCRIT 49.2 % (38.4-49.7); HEMOGLOBIN 15.9 g/dL (12.9-16.9); IMMATURE GRAN ABSOLUTE AUTO 0.05 K/uL (0.00-0.23); IMMATURE GRAN PERCENT AUTO 0.5 % (0.0-0.7); LYMPHOCYTES ABSOLUTE AUTO 2.68 K/uL (0.8-3.3); LYMPHOCYTES PERCENT AUTO 25.4 % (11.4-47.7); MEAN CORPUSCULAR HEMOGLOBIN 30.6 pg (31.6-35.5); MEAN CORPUSCULAR HGB CONC 32.3 g/dL (31.6-35.5); MEAN CORPUSCULAR VOLUME 94.6 fL (81.4-99.0); MONOCYTES ABSOLUTE AUTO 0.86 K/uL (0.20-0.90); MONOCYTES PERCENT AUTO 8.1 % (3.3-12.6); NEUTROPHILS ABSOLUTE AUTO 5.97 K/uL (1.0-7.6); NEUTROPHILS PERCENT AUTO 56.6 % (40.0-78.1); PLATELET COUNT,PLT 350 K/uL (130-375); WHITE BLOOD CELL COUNT,WBC 10.6 K/uL (3.2-11.0)
[2024-12-10] MEDS: Albuterol/Ipratropium 3.0-0.5 MG/3 ML Neb Soln NEB ONE (18:55)
[2024-12-10] MEDS: Sodium Chloride 0.9% 10 ML Syringe FLUSH PRN (18:56)
[2024-12-10] MEDS: methylPREDNISolone Sodium Succinate 125 MG/2 ML SDV IVPUSH ONE (18:56)
[2024-12-10 19:10] LABS: CALCIUM 10.5 mg/dL (8.5-10.1); CREATININE 1.1 mg/dL (0.8-1.3); EST CRCL DRUG DOSING (CG) 80.34 mL/min; POTASSIUM,K 3.9 mmol/L (3.6-5.2); TROPONIN I HIGH SENSITIVITY 17.3 pg/mL (<=60.3)
[2024-12-10 19:11] LABS: ANION GAP 13.9 mmol/L (5.0-14.0)
[2024-12-10] MEDS: Doxycycline 100 MG Cap PO ONE (19:58)
== END 2024-12-10 19:59 | disposition home or self-care (01) ==
LOC: JP.ED 17:08
DX: S30.861A Insect bite (nonvenomous) of abdominal wall, initial encounter (principal); F17.210 Nicotine dependence, cigarettes, uncomplicated; E66.9 Obesity, unspecified; Z68.36 Body mass index [BMI] 36.0-36.9, adult; W57.XXXA Bitten or stung by nonvenomous insect and other nonvenomous arthropods, initial encounter
CPT/HCPCS: 36415; 71046; 80048; 84484; 85025; 93005; 93010; 96374; 99284; 99285; A9270; J2919; J7620